=== PATIENT | female | born 1960 | race Asian ===

== ENCOUNTER 2024-07-07 01:44 | Emergency (ER) | payer SELFPAY ==
[2024-07-07] MEDS ORDERED: Sodium Chloride 0.9% 2.5 ML Syringe FLUSH PRN (01:46)
[2024-07-07] MEDS ORDERED: Sodium Chloride 0.9% 10 ML Syringe FLUSH PRN (01:46)
[2024-07-07] MEDS: Sodium Chloride 0.9% 1,000 ML IV STA (02:06)
[2024-07-07] MEDS: Ondansetron 4 MG/2 ML SDV IVPUSH ONE (02:06)
[2024-07-07] MEDS: Morphine 4 MG/ML Syringe IVPUSH ONE (02:07)
[2024-07-07] MEDS: Ketorolac 30 MG/ML SDV IVPUSH ONE (03:40)
[2024-07-07 03:56] LABS: APPEARANCE,URINE CLEAR; BILIRUBIN,URINE NEGATIVE (NEGATIVE); COLOR,URINE YELLOW; GLUCOSE,URINE NEGATIVE (NEGATIVE); KETONES,URINE TRACE mg/dL (NEGATIVE); LEUKOCYTE ESTERASE,URINE NEGATIVE (NEGATIVE); NITRITE,URINE NEGATIVE (NEGATIVE); OCCULT BLOOD,URINE NEGATIVE (NEGATIVE); PH,URINE 7.5 (5.0-8.0); PROTEIN,URINE NEGATIVE (NEGATIVE); UROBILINOGEN,URINE 0.2 EU/dL (<2.0)
[2024-07-07 04:43] LABS: CALCIUM 8.5 mg/dL (8.5-10.1); CARBON DIOXIDE,CO2 25.5 mmol/L (21.0-32.0); CREATININE 1.4 mg/dL (0.6-1.0); EST CRCL DRUG DOSING (CG) 33.14 mL/min; POTASSIUM,K 3.7 mmol/L (3.5-5.1)
== END 2024-07-07 05:13 | disposition left against medical advice (07) ==
LOC: MW.ED 01:44
DX: R10.9 Unspecified abdominal pain (principal); R35.0 Frequency of micturition; R30.0 Dysuria; R11.2 Nausea with vomiting, unspecified; Z75.8 Other problems related to medical facilities and other health care
CPT/HCPCS: 36415; 80048; 81003; 96361; 96374; 96375; 99284; J1885; J2270; J2405; J7030